=== PATIENT | female | born 1950 | race Caucasian/White ===

== ENCOUNTER 2017-08-19 10:42 | Observation (INO) | payer OTHER ==
[~2017-08-19] VITALS: Ht 162.6 cm; Wt 62.1 kg
[2017-08-19 10:59] VITALS: BP 101/63; PULSE 94; RESP 18; TEMP 97.6; O2SAT 97
[2017-08-19 11:53] LABS: AUTOMATED NEUTROPHIL # 11.9 TH/MM3 (1.8-7.7); BASOPHIL # 0.5 TH/MM3 (0-0.2); BASOPHIL % 3.3 % (0.0-2.0); EOSINOPHIL % 0.1 % (0.0-4.0); HEMATOCRIT 38.5 % (35.0-46.0); HEMOGLOBIN 12.7 GM/DL (11.6-15.3); LYMPH % 8.7 % (9.0-44.0); LYMPHOCYTE # 1.3 TH/MM3 (1.0-4.8); MEAN CELL VOLUME 84.7 FL (80.0-100.0); MEAN CORPUSCULAR HEMOGLOBIN 27.9 PG (27.0-34.0); MEAN PLATELET VOLUME 7.4 FL (7.0-11.0); MONO % 7.5 % (0.0-8.0); MONOCYTE # 1.1 TH/MM3 (0-0.9); NEUT % 80.4 % (16.0-70.0); PLATELET COUNT 526 TH/MM3 (150-450); RED BLOOD COUNT 4.55 MIL/MM3 (4.00-5.30); RED CELL DISTRIBUTION WIDTH 11.6 % (11.6-17.2); WHITE BLOOD COUNT 14.8 TH/MM3 (4.0-11.0)
[2017-08-19] MEDS ORDERED: LISI-515 PO (11:53)
[2017-08-19] MEDS ORDERED: CONJTAB PO (11:53)
[2017-08-19] MEDS ORDERED: NORV2.5T PO (11:53)
[2017-08-19] MEDS ORDERED: AMLO10 PO (11:53)
[2017-08-19 11:55] LABS: BLOOD, URINE NEG (NEG); GLUCOSE,URINE NEG (NEG); KETONE, URINE NEG (NEG); NITRITE,URINE NEG (NEG); PH, URINE 7.5 (5.0-8.5); URINE LEUKOCYTE ESTERASE NEG (NEG)
[2017-08-19 11:58] LABS: BILIRUBIN, URINE NEG (NEG); URINE COLOR AMBER (YELLW/STRAW)
[2017-08-19 12:00] LABS: AMORPHOUS SEDIMENT, URINE FEW; WBC, URINE 0-2 /hpf (0-5)
--- NOTE | 2017-08-19 12:03 | PD ---
HPI Chief Complaint: GI Complaint Time Seen by Provider: 11:30 Travel History International Travel<30 days: No Contact w/Intl Traveler<30days: No Traveled to known affect area: No History of Present Illness HPI 66 y/o female presents with 3 week history of abdominal pain and nonbloody diarrhea. She went for colonoscopy today with Dr. Maier but they were unable to perform given she was not able to prep properly. given she was having significant pain she was sent here for further workup. Any other concurrent complaints. Quality is crampy. Severity is moderate. She denies specific modifying factors. She states she currently is on a 7 day regimen of Cipro and Flagyl which usually helps but this has not yet. PFSH Past Medical History Hypertension: Yes ?: Not Past Surgical History Section: Yes (X 2) Gynecologic Surgery: Yes ( ABOVE) Hysterectomy: Yes Social History Alcohol Use: Yes (OCCASIONAL WINE) Tobacco Use: No Substance Use: No Allergies-Medications (Allergen,Severity, Reaction): Coded Allergies: codeine (Verified Adverse Reaction, Intermediate, GI UPSET, 08/19/17) Reported Meds & Prescriptions Reported Meds & Active Scripts Active Reported Premphase Blister Pack (Estrogens Conj/Medroxyprogest Acet) 0.625-5 Mg Tab 1 Tab PO 2XWEEK Take 1 maroon tablet daily for 14 days followed by 1 light-blue tablet for 14 days. Lisinopril 20 Mg Tab 20 Mg PO DAILY Norvasc (Amlodipine Besylate) 10 Mg Tab 10 Mg PO DAILY Norvasc (Amlodipine Besylate) 2.5 Mg Tab 2.5 Mg PO DAILY Review of Systems Except as stated in HPI: all other systems reviewed are Neg Physical Exam Narrative GENERAL: 66-year-old female in no apparent distress SKIN: Focused skin assessment warm/dry. HEAD: Atraumatic. Normocephalic. EYES: Pupils equal and round. No scleral icterus. No injection or drainage. ENT: No nasal bleeding or discharge. Mucous membranes pink and moist. NECK: Trachea midline. No JVD. CARDIOVASCULAR: Regular rate and rhythm. RESPIRATORY: No accessory muscle use. GASTROINTESTINAL: Abdomen soft, non-tender, nondistended. MUSCULOSKELETAL: No obvious deformities. No clubbing. No cyanosis. NEUROLOGICAL: Awake and alert. Motor grossly within normal limits. Normal speech. PSYCHIATRIC: Appropriate mood and affect; insight and judgment normal. Data Data Last Documented VS Vital Signs Date Time Temp Pulse Resp B/P (MAP) Pulse Ox O2 Delivery O2 Flow Rate FiO2 08/19/17 10:59 97.6 94 18 101/63 (76) 97 Orders Orders Complete Blood Count With Diff (08/19/17 11:30) Comprehensive Metabolic Panel (08/19/17 11:30) Urinalysis - C+S If Indicated (08/19/17 11:30) Lipase (08/19/17 11:30) Ct Abd/Pel W Iv Contrast(Rout) (08/19/17 ) Iv Access Insert/Monitor (08/19/17 11:30) Iohexol 350 Inj (Omnipaque 350 Inj) (08/19/17 12:42) Admit Order (Ed Use Only) (08/19/17 13:38) Ciprofloxacin 400 Mg Premix (Cipro 400 M (08/19/17 13:45) Metronidazole 500 Mg Inj (Flagyl 500 Mg (08/19/17 13:45) Gastrografin Enema (08/19/17 ) Labs Laboratory Tests Test 08/19/17 11:30 08/19/17 11:45 Urine Collection Type CLEAN CATCH Urine Color NABIL Urine Turbidity SLIGHT Urine pH 7.5 Urine Specific [place] 1.009 Urine Protein NEG mg/dL Urine Glucose (UA) NEG mg/dL Urine Ketones NEG mg/dL Urine Occult Blood NEG Urine Nitrite NEG Urine Bilirubin NEG Urine Leukocyte Esterase NEG Urine WBC 0-2 /hpf Urine Squamous Epithelial Cells 6-8 /hpf Urine Amorphous Sediment FEW Urine Hyaline Casts 3-5 /lpf Microscopic Urinalysis Comment CULT NOT INDICATED Urine Collection Time 1130 White Blood Count 14.8 TH/MM3 Red Blood Count 4.55 MIL/MM3 Hemoglobin 12.7 GM/DL Hematocrit 38.5 % Mean Corpuscular Volume 84.7 FL Mean Corpuscular Hemoglobin 27.9 PG Mean Corpuscular Hemoglobin Concent 33.0 % Red Cell Distribution Width 11.6 % Platelet Count 526 TH/MM3 Mean Platelet Volume 7.4 FL Neutrophils (%) (Auto) 80.4 % Lymphocytes (%) (Auto) 8.7 % Monocytes (%) (Auto) 7.5 % Eosinophils (%) (Auto) 0.1 % Basophils (%) (Auto) 3.3 % Neutrophils # (Auto) 11.9 TH/MM3 Lymphocytes # (Auto) 1.3 TH/MM3 Monocytes # (Auto) 1.1 TH/MM3 Eosinophils # (Auto) 0.0 TH/MM3 Basophils # (Auto) 0.5 TH/MM3 CBC Comment DIFF FINAL Differential Comment Blood Urea Nitrogen 16 MG/DL Creatinine 1.10 MG/DL Random Glucose 129 MG/DL Total Protein 7.7 GM/DL Albumin 3.2 GM/DL Calcium Level 9.3 MG/DL Alkaline Phosphatase 93 U/L Aspartate Amino Transf (AST/SGOT) 10 U/L Alanine Aminotransferase (ALT/SGPT) 15 U/L Total Bilirubin 0.4 MG/DL Sodium Level 135 MEQ/L Potassium Level 3.5 MEQ/L Chloride Level 96 MEQ/L Carbon Dioxide Level 30.4 MEQ/L Anion Gap 9 MEQ/L Estimat Glomerular Filtration Rate 50 ML/MIN Lipase 172 U/L MDM Medical Decision Making Medical Screen Exam Complete: Yes Emergency Medical Condition: Yes Medical Record Reviewed: Yes (pmh confirmed) Interpretation(s) CBC & BMP Diagram 08/19/17 11:45 Total Protein 7.7, Albumin 3.2 L, Calcium Level 9.3, Alkaline Phosphatase 93, Aspartate Amino Transf (AST/SGOT) 10 L, Alanine Aminotransferase (ALT/SGPT) 15, Total Bilirubin 0.4 Last 24 hours Impressions Abdomen/Pelvis CT 08/19/17 0000 Signed Impressions: Service Date/Time: Saturday, August 19, 2017 12:31 - CONCLUSION: 1. Retained stool in the sigmoid colon which has the appearance of a fecal impaction. 2. Fluid collection and mild wall thickening is identified in the distal descending colon and proximal sigmoid colon. 3. No evidence of free air, significant pericolonic inflammation or abnormal extraintestinal fluid collections. 4. Simple hepatic cysts. Naeem Dorado MD Differential Diagnosis Diverticulitis, colitis, IBS Narrative Course We will check blood work, urinalysis, CT scan abdominal pelvis and reevaluate ED workup with fecal impaction with concurrent mild inflammation and fluid collection of descending colon. Will discuss with her GI specialist Patient updated and agrees to observation Physician Communication Physician Communication dr maier called and gave basic report before patient arrived and requested basic blood work and CT of abdomen dr maier requests gastrograffin enema and iv antibiotics with observation with [facility] team dr kc states to place in observation under dr salvador Diagnosis Primary Impression: Fecal impaction Additional Impressions: Abdominal pain Qualified Codes: R10.9 - Unspecified abdominal pain Colon wall thickening Admitting Information Admitting Physician Requests: Observation Brandi Martinez MD Aug 19, 2017 12:03
[2017-08-19 12:05] LABS: CHLORIDE 96 MEQ/L (98-107); SODIUM (NA) 135 MEQ/L (136-145)
[2017-08-19 12:08] LABS: ALBUMIN 3.2 GM/DL (3.4-5.0); BICARBONATE 30.4 MEQ/L (21.0-32.0); CALCIUM 9.3 MG/DL (8.5-10.1)
[2017-08-19 12:09] LABS: BLOOD UREA NITROGEN 16 MG/DL (7-18); GLUCOSE,RANDOM 129 MG/DL (74-106)
[2017-08-19 12:11] LABS: ALT (GPT) 15 U/L (10-53); AST (GOT) 10 U/L (15-37); GLOMERULAR FILTRATION RATE 50 ML/MIN (>89)
[2017-08-19 12:13] LABS: TOTAL BILIRUBIN ADULT 0.4 MG/DL (0.2-1.0); TOTAL PROTEIN 7.7 GM/DL (6.4-8.2)
[2017-08-19 12:14] LABS: ALKALINE PHOSPHATASE 93 U/L (45-117)
[2017-08-19] MEDS ORDERED: IOHEXOL 350 MG/ML 10 ML VIAL (for RAD DIAG) IVCONTRAST ONE (12:42)
--- NOTE | 2017-08-19 13:07 | RADRPT ---
EXAM DATE/TIME: 08/19/2017 12:31 [place] COMPARISON: No previous studies available for comparison. INDICATIONS : Colonoscopy this morning. Now has abdominal pain and cramping. IV CONTRAST: 75 cc Omnipaque 350 (iohexol) IV ORAL CONTRAST: No oral contrast ingested. RADIATION DOSE: 7.85 CTDIvol (mGy) MEDICAL HISTORY : Hypertension. SURGICAL HISTORY : Hysterectomy. section. ENCOUNTER: Initial ACUITY: 1 day PAIN SCALE: 5/10 LOCATION: pelvis TECHNIQUE: Volumetric scanning of the abdomen and pelvis was performed. Using automated exposure control and ad justment of the mA and/or kV according to patient size, radiation dose was kept as low as reasonably achievable to obtain optimal diagnostic quality images. DICOM format image data is available electro nically for review and comparison. FINDINGS: LOWER LUNGS: The visualized lower lungs are clear. LIVER: Homogeneous density without suspicious lesion. 3 discrete simple cysts are identified. Largest measur es 1.6 cm. There is no dilation of the biliary tree. SPLEEN: Normal size without lesion. PANCREAS: Within normal limits. KIDNEYS: Normal in size and shape. 2 tiny nonobstructing calculi are identified in the right kidney. There is no mass space or hydronephrosis. ADRENAL GLANDS: Within normal limits. VASCULAR: There is no aortic aneurysm. BOWEL/MESENTERY: Retained stool which has the appearance of the thecal impaction is identified in the mid sigmoid colo n. There is fluid and mild wall thickening identified proximal to this area. There is no significant pericolonic inflammation or abnormal fluid collections. Non-dilated loops of fluid-filled small bowel are noted. ABDOMINAL WALL: Within normal limits. RETROPERITONEUM: There is no lymphadenopathy. BLADDER: No wall thickening or mass. REPRODUCTIVE: Within normal limits. INGUINAL: There is no lymphadenopathy or hernia. MUSCULOSKELETAL: Within normal limits for patient age. CONCLUSION: 1. Retained stool in the sigmoid colon which has the appearance of a fecal impaction. 2. Fluid collection and mild wall thickening is identified in the distal descending colon and proxima l sigmoid colon. 3. No evidence of free air, significant pericolonic inflammation or abnormal extraintestinal fluid co llections. 4. Simple hepatic cysts. Naeem Dorado MD on August 19, 2017 at 12:56 Board Certified Radiologist. This report was verified electronically.
[2017-08-19 13:30] VITALS: BP 110/70; PULSE 86; RESP 20; O2SAT 98
[2017-08-19] MEDS ORDERED: DIATRIZOATE MEGLUM/DIATRIZOATE SOD 120 ML BTL (for RAD DIAG) RECTAL ONE (13:41)
[2017-08-19] MEDS ORDERED: CIPROFLOXACIN 400 MG PREMIX 200 ML IV ONE (13:45)
[2017-08-19] MEDS ORDERED: metroNIDAZOLE 500 MG INJ 100 ML IV ONE (13:45)
[2017-08-19] MEDS ORDERED: NALOXONE HCL 0.4 MG/ML AMP IV PUSH PRN (14:00)
[2017-08-19] MEDS ORDERED: BISACODYL 10 MG SUPP RECTAL PRN (14:00)
[2017-08-19] MEDS ORDERED: SENNOSIDES 8.6 MG TAB PO PRN (14:00)
[2017-08-19] MEDS ORDERED: MAGNESIUM HYDROXIDE SUSP 30 ML CUP PO PRN (14:00)
[2017-08-19] MEDS ORDERED: SODIUM CHLORIDE 0.9% FLUSH 10 ML FLUSH IV FLUSH PRN (14:00)
[2017-08-19] MEDS ORDERED: LACTULOSE SYRUP 20 GM/30 ML CUP PO PRN (14:00)
[2017-08-19] MEDS ORDERED: ONDANSETRON HCL 4 MG/2 ML VIAL IVP PRN (14:00)
[2017-08-19] MEDS: SODIUM CHLOR 0.45% 1000 ML INJ 1,000 ML IV SCH (15:23)
[2017-08-19 16:00] VITALS: BP 121/80; PULSE 93; RESP 18; TEMP 97.4; TEMP 97.5; O2SAT 97
--- NOTE | 2017-08-19 16:10 | HHI.HP ---
HPI Service [facility] Hospitalists Primary Care Physician Jonelle Caballero M.D. Admission Diagnosis fecal impaction, abdominal pain Chief Complaint: sent by GI for admission failed out patient treatment Travel History International Travel<30 Days: No Contact w/Intl Traveler <30 Da: No Traveled to Known Affected Are: No History of Present Illness 66 y/o female presents with 3 week history of abdominal pain and nonbloody diarrhea. She went for colonoscopy today with Dr. Maier but they were unable to perform given she was not able to prep properly. given she was having significant pain she was sent here for further workup. Any other concurrent complaints. Quality is crampy. Severity is moderate. She denies specific modifying factors. She states she currently is on a 7 day regimen of Cipro and Flagyl which usually helps but this has not yet. Also has been on levsin or librax in past also bentyl with mixed results . In er had elevation WBC count and CT showed fecal impaction with fluid collection and mild wall thickening distal desending colon that GI believes is diverticular and was gastrograffin enema and IV antibiotics. Review of Systems Gastrointestinal: COMPLAINS OF: Abdominal pain, Nausea Past Family Social History Past Medical History htn,diverticular disease Past Surgical History hysterectomy Reported Medications lisinopril 20 norvasc 10 hormone Allergies: Coded Allergies: codeine (Verified Adverse Reaction, Intermediate, GI UPSET, 08/19/17) Social History NS,ND Physical Exam Vital Signs Vital Signs Date Time Temp Pulse Resp B/P (MAP) Pulse Ox O2 Delivery O2 Flow Rate FiO2 08/19/17 13:30 86 20 110/70 (83) 98 Room Air 08/19/17 10:59 97.6 94 18 101/63 (76) 97 Physical Exam GENERAL: This is a well-nourished, well-developed patient, in no apparent distress. SKIN: No rashes, ecchymoses or lesions. Cool and dry. HEAD: Atraumatic. Normocephalic. No temporal or scalp tenderness. EYES: Pupils equal round and reactive. Extraocular motions intact. No scleral icterus. No injection or drainage. ENT: Nose without bleeding, purulent drainage or septal hematoma. Throat without erythema, tonsillar hypertrophy or exudate. Uvula midline. Airway patent. NECK: Trachea midline. No JVD or lymphadenopathy. Supple, nontender, no meningeal signs. CARDIOVASCULAR: Regular rate and rhythm without murmurs, gallops, or rubs. RESPIRATORY: Clear to auscultation. Breath sounds equal bilaterally. No wheezes , rales, or rhonchi. GASTROINTESTINAL: Abdomen soft, mild-tender, nondistended. No hepato- splenomegaly, or palpable masses. No guarding. MUSCULOSKELETAL: Extremities without clubbing, cyanosis, or edema. No joint tenderness, effusion, or edema noted. No calf tenderness. Negative Homans sign bilaterally. NEUROLOGICAL: Awake and alert. Cranial nerves II through XII intact. Motor and sensory grossly within normal limits. Five out of 5 muscle strength in all muscle groups. Normal speech. Laboratory Laboratory Tests Test 08/19/17 11:30 08/19/17 11:45 Urine Collection Type CLEAN CATCH Urine Color NABIL Urine Turbidity SLIGHT Urine pH 7.5 Urine Specific [place] 1.009 Urine Protein NEG Urine Glucose (UA) NEG Urine Ketones NEG Urine Occult Blood NEG Urine Nitrite NEG Urine Bilirubin NEG Urine Leukocyte Esterase NEG Urine WBC 0-2 Urine Squamous Epithelial Cells 6-8 Urine Amorphous Sediment FEW Urine Hyaline Casts 3-5 Microscopic Urinalysis Comment CULT NOT INDICATED Urine Collection Time 1130 White Blood Count 14.8 Red Blood Count 4.55 Hemoglobin 12.7 Hematocrit 38.5 Mean Corpuscular Volume 84.7 Mean Corpuscular Hemoglobin 27.9 Mean Corpuscular Hemoglobin Concent 33.0 Red Cell Distribution Width 11.6 Platelet Count 526 Mean Platelet Volume 7.4 Neutrophils (%) (Auto) 80.4 Lymphocytes (%) (Auto) 8.7 Monocytes (%) (Auto) 7.5 Eosinophils (%) (Auto) 0.1 Basophils (%) (Auto) 3.3 Neutrophils # (Auto) 11.9 Lymphocytes # (Auto) 1.3 Monocytes # (Auto) 1.1 Eosinophils # (Auto) 0.0 Basophils # (Auto) 0.5 CBC Comment DIFF FINAL Differential Comment Blood Urea Nitrogen 16 Creatinine 1.10 Random Glucose 129 Total Protein 7.7 Albumin 3.2 Calcium Level 9.3 Alkaline Phosphatase 93 Aspartate Amino Transf (AST/SGOT) 10 Alanine Aminotransferase (ALT/SGPT) 15 Total Bilirubin 0.4 Sodium Level 135 Potassium Level 3.5 Chloride Level 96 Carbon Dioxide Level 30.4 Anion Gap 9 Estimat Glomerular Filtration Rate 50 Lipase 172 Result Diagram: 08/19/17 1145 08/19/17 1145 Imaging Last 24 hours Impressions Abdomen/Pelvis CT 08/19/17 0000 Signed Impressions: Service Date/Time: Saturday, August 19, 2017 12:31 - CONCLUSION: 1. Retained stool in the sigmoid colon which has the appearance of a fecal impaction. 2. Fluid collection and mild wall thickening is identified in the distal descending colon and proximal sigmoid colon. 3. No evidence of free air, significant pericolonic inflammation or abnormal extraintestinal fluid collections. 4. Simple hepatic cysts. MD Lizeth Vang VTE Risk Assessment Caprinjuarez VTE Risk Assessment: No/Low Risk (score <= 1) Caprini Risk Assessment Model Point Value = 1 Point Value = 2 Point Value = 3 Point Value = 5 Age 41-60 Minor surgery BMI > 25 kg/m2 Swollen legs Varicose veins or History of unexplained or recurrent spontaneous Oral contraceptives or hormone replacement Sepsis (< 1 month) Serious lung disease, including pneumonia (< 1 month) Abnormal pulmonary function Acute myocardial infarction Congestive heart failure (< 1 month) History of inflammatory bowel disease Medical patient at bed rest Age 61-74 Arthroscopic surgery Major open surgery (> 45 min) Laparoscopic surgery (> 45 min) Malignancy Confined to bed (> 72 hours) Immobilizing plaster cast Central venous access Age >= 75 History of VTE Family history of VTE Factor V Leiden Prothrombin [id number] Lupus anticoagulant Anticardiolipin antibodies Elevated serum homocysteine Heparin-induced thrombocytopenia Other congenital or acquired thrombophilia Stroke (< 1 month) Elective arthroplasty Hip, pelvis, or leg fracture Acute spinal cord injury (< 1 month) Prophylaxis Regimen Total Risk Factor Score Risk Level Prophylaxis Regimen 0-1 Low Early ambulation 2 Moderate Order ONE of the following: *Sequential Compression Device (SCD) *Heparin 5000 units SQ BID 3-4 Higher Order ONE of the following medications: *Heparin 5000 units SQ TID *Enoxaparin/Lovenox 40 mg SQ daily (WT < 150 kg, CrCl > 30 mL/min) *Enoxaparin/Lovenox 30 mg SQ daily (WT < 150 kg, CrCl > 10-29 mL/min) *Enoxaparin/Lovenox 30 mg SQ BID (WT < 150 kg, CrCl > 30 mL/min) AND/OR *Sequential Compression Device (SCD) 5 or more Highest Order ONE of the following medications: *Heparin 5000 units SQ TID (Preferred with Epidurals) *Enoxaparin/Lovenox 40 mg SQ daily (WT < 150 kg, CrCl > 30 mL/min) *Enoxaparin/Lovenox 30 mg SQ daily (WT < 150 kg, CrCl > 10-29 mL/min) *Enoxaparin/Lovenox 30 mg SQ BID (WT < 150 kg, CrCl > 30 mL/min) AND *Sequential Compression Device (SCD) Assessment and Plan Problem List: (1) Abdominal pain ICD Codes: R10.9 - Unspecified abdominal pain Status: Acute Plan: iv fluid NPO GI consult sent by their office empiric flagyl and cipro IV (2) Colon wall thickening ICD Codes: K63.9 - Disease of intestine, unspecified Status: Acute Plan: possibly related to diverticulitis further plan as per GI (3) Fecal impaction ICD Codes: K56.41 - Fecal impaction Status: Acute Plan: as per GI gastrograffin enema Assessment and Plan as above will keep NPO for now Code Status full Discussed Condition With patient Problem Qualifiers (1) Abdominal pain: Qualified Codes: R10.9 - Unspecified abdominal pain Jose Armando Garza MD Aug 19, 2017 16:10
[2017-08-19] MEDS ORDERED: MAGNESIUM CITRATE SOLN 300 ML BTL PO ONE (19:00)
[2017-08-19 20:00] VITALS: BP 116/76; PULSE 109; RESP 18; TEMP 97.2; O2SAT 98
[2017-08-19] MEDS: DOCUSATE SODIUM 50 MG/SENNA 8.6 MG TAB PO SCH (20:51)
[2017-08-19] MEDS: SODIUM CHLORIDE 0.9% FLUSH 10 ML FLUSH IV FLUSH SCH (20:52)
[2017-08-19] MEDS: metroNIDAZOLE 500 MG INJ 100 ML IV SCH (22:41)
[2017-08-19] MEDS: HYOSCYAMINE 0.125 MG TAB PO PRN (22:54)
[2017-08-20] VITALS: BP 130/81; PULSE 105; RESP 17; TEMP 98.7; O2SAT 94
[2017-08-20] MEDS: CIPROFLOXACIN 400 MG PREMIX 200 ML IV SCH ×2 (03:01→14:57)
[2017-08-20] MEDS: SODIUM CHLOR 0.45% 1000 ML INJ 1,000 ML IV SCH ×3 (03:05→20:50)
[2017-08-20] MEDS: metroNIDAZOLE 500 MG INJ 100 ML IV SCH ×3 (06:22→23:49)
[2017-08-20 06:39] LABS: AUTOMATED NEUTROPHIL # 11.2 TH/MM3 (1.8-7.7); BASOPHIL % 0.3 % (0.0-2.0); EOSINOPHIL % 0.3 % (0.0-4.0); HEMATOCRIT 34.9 % (35.0-46.0); HEMOGLOBIN 11.5 GM/DL (11.6-15.3); LYMPH % 7.6 % (9.0-44.0); LYMPHOCYTE # 1.1 TH/MM3 (1.0-4.8); MEAN CELL VOLUME 84.6 FL (80.0-100.0); MEAN CORPUSCULAR HEMOGLOBIN 27.9 PG (27.0-34.0); MEAN PLATELET VOLUME 7.4 FL (7.0-11.0); MONO % 11.8 % (0.0-8.0); MONOCYTE # 1.7 TH/MM3 (0-0.9); PLATELET COUNT 452 TH/MM3 (150-450); RED BLOOD COUNT 4.13 MIL/MM3 (4.00-5.30); RED CELL DISTRIBUTION WIDTH 11.6 % (11.6-17.2)
[2017-08-20 07:12] LABS: BICARBONATE 27.8 MEQ/L (21.0-32.0); CALCIUM 8.3 MG/DL (8.5-10.1); CREATININE 0.56 MG/DL (0.50-1.00)
--- NOTE | 2017-08-20 07:52 | HHI.PR ---
Subjective Remarks Still no bowel movement. Slight dicomfort across the left lower abdomen. No vomiting. Objective Vitals Vital Signs Date Time Temp Pulse Resp B/P (MAP) Pulse Ox O2 Delivery O2 Flow Rate FiO2 08/20/17 00:00 98.7 105 17 130/81 (97) 94 08/19/17 20:00 97.2 109 18 116/76 (89) 98 08/19/17 16:00 97.4 93 18 121/80 (94) 97 08/19/17 16:00 97.5 93 18 121/80 (94) 97 08/19/17 13:30 86 20 110/70 (83) 98 Room Air 08/19/17 10:59 97.6 94 18 101/63 (76) 97 Result Diagram: 08/20/17 0612 08/20/17 06 Other Results Laboratory Tests Test 08/19/17 11:30 08/19/17 11:45 08/20/17 06:12 Urine Collection Type CLEAN CATCH Urine Color NABIL Urine Turbidity SLIGHT Urine pH 7.5 Urine Specific [place] 1.009 Urine Protein NEG mg/dL Urine Glucose (UA) NEG mg/dL Urine Ketones NEG mg/dL Urine Occult Blood NEG Urine Nitrite NEG Urine Bilirubin NEG Urine Leukocyte Esterase NEG Urine WBC 0-2 /hpf Urine Squamous Epithelial Cells 6-8 /hpf Urine Amorphous Sediment FEW Urine Hyaline Casts 3-5 /lpf Microscopic Urinalysis Comment CULT NOT INDICATED Urine Collection Time 1130 White Blood Count 14.8 TH/MM3 14.0 TH/MM3 Red Blood Count 4.55 MIL/MM3 4.13 MIL/MM3 Hemoglobin 12.7 GM/DL 11.5 GM/DL Hematocrit 38.5 % 34.9 % Mean Corpuscular Volume 84.7 FL 84.6 FL Mean Corpuscular Hemoglobin 27.9 PG 27.9 PG Mean Corpuscular Hemoglobin Concent 33.0 % 33.0 % Red Cell Distribution Width 11.6 % 11.6 % Platelet Count 526 TH/MM3 452 TH/MM3 Mean Platelet Volume 7.4 FL 7.4 FL Neutrophils (%) (Auto) 80.4 % 80.0 % Lymphocytes (%) (Auto) 8.7 % 7.6 % Monocytes (%) (Auto) 7.5 % 11.8 % Eosinophils (%) (Auto) 0.1 % 0.3 % Basophils (%) (Auto) 3.3 % 0.3 % Neutrophils # (Auto) 11.9 TH/MM3 11.2 TH/MM3 Lymphocytes # (Auto) 1.3 TH/MM3 1.1 TH/MM3 Monocytes # (Auto) 1.1 TH/MM3 1.7 TH/MM3 Eosinophils # (Auto) 0.0 TH/MM3 0.0 TH/MM3 Basophils # (Auto) 0.5 TH/MM3 0.0 TH/MM3 CBC Comment DIFF FINAL DIFF FINAL Differential Comment Blood Urea Nitrogen 16 MG/DL 7 MG/DL Creatinine 1.10 MG/DL 0.56 MG/DL Random Glucose 129 MG/DL 119 MG/DL Total Protein 7.7 GM/DL Albumin 3.2 GM/DL Calcium Level 9.3 MG/DL 8.3 MG/DL Alkaline Phosphatase 93 U/L Aspartate Amino Transf (AST/SGOT) 10 U/L Alanine Aminotransferase (ALT/SGPT) 15 U/L Total Bilirubin 0.4 MG/DL Sodium Level 135 MEQ/L 137 MEQ/L Potassium Level 3.5 MEQ/L 3.4 MEQ/L Chloride Level 96 MEQ/L 102 MEQ/L Carbon Dioxide Level 30.4 MEQ/L 27.8 MEQ/L Anion Gap 9 MEQ/L 7 MEQ/L Estimat Glomerular Filtration Rate 50 ML/MIN 109 ML/MIN Lipase 172 U/L Imaging Last 24 hours Impressions Abdomen/Pelvis CT 08/19/17 0000 Signed Impressions: Service Date/Time: Saturday, August 19, 2017 12:31 - CONCLUSION: 1. Retained stool in the sigmoid colon which has the appearance of a fecal impaction. 2. Fluid collection and mild wall thickening is identified in the distal descending colon and proximal sigmoid colon. 3. No evidence of free air, significant pericolonic inflammation or abnormal extraintestinal fluid collections. 4. Simple hepatic cysts. Naeem Dorado MD Objective Remarks Exam: Pleasant white female in no distress. HEENT: Pupils equal, no scleral icterus, mouth negative Heart: RRR with no murmurs Lungs: Clear Abdomen: Soft, minimal tenderness in the left lower quadrant, no rebound or guarding Extremities: No edema Neuro: alert, oriented A/P Assessment and Plan Assessment: --Abdominal pain --Mild abdominal wall thickening in the distal descending and sigmoid colon on CT scan--? diverticulitis --Fecal impaction on CT scan --Hypertension Plan: Gastroenterology ordered a gastrografin enema which has not been done. Continue antibiotic for presumed diverticulitis. TEDs/SCD's for DVT prophylaxis. Duran Aguilar MD Aug 20, 2017 07:52
[2017-08-20 08:00] VITALS: BP 118/72; PULSE 99; RESP 18; TEMP 98.7; O2SAT 95
[2017-08-20] MEDS ORDERED: POTASSIUM CHLORIDE 20 MEQ CONTROLLED RELEASE TAB PO ONE (08:00)
[2017-08-20] MEDS: LISINOPRIL 20 MG TAB PO SCH (08:18)
[2017-08-20] MEDS: DOCUSATE SODIUM 50 MG/SENNA 8.6 MG TAB PO SCH ×2 (08:18→20:50)
[2017-08-20] MEDS: HYOSCYAMINE 0.125 MG TAB PO PRN (08:18)
[2017-08-20] MEDS: SODIUM CHLORIDE 0.9% FLUSH 10 ML FLUSH IV FLUSH SCH ×2 (08:18→20:50)
[2017-08-20 12:00] VITALS: BP 125/75; PULSE 104; RESP 18; TEMP 98.7; O2SAT 98
--- NOTE | 2017-08-20 15:35 | MB ---
cc: Nadine Maier MD DATE OF CONSULT: 08/19/2017 REFERRING PHYSICIAN: Dr. Garza HISTORY OF PRESENT ILLNESS: Ms. Guevara is a very pleasant 66-year-old lady with a history of IBS. She has severe abdominal pain, nonbloody diarrhea for the last 3 weeks. She was given antibiotics as an outpatient with no significant improvement in her symptoms. This morning, she was scheduled for a colonoscopy outpatient. She stated that while she was preparing for the colonoscopy she developed severe pain in the lower abdomen. She was unable to complete the prep. She drank only 1 bottle. She did have some nausea, but no vomiting. The pain was so intense that she wanted to go to emergency room overnight. She had a fainting episode. Her took her to emergency room, but she got better and so they decided not to wait and proceeded with colonoscopy in the morning. She had an attempted colonoscopy. I passed the scope up to her sigmoid colon. Here, a large amount of solid stool was noted and severe diverticulosis. I was unable to complete the colonoscopy secondary to the above. I went and changed the scope to an ultra slim scope, but in spite of that I was unable to pass it. Due to above symptoms and the findings, patient was referred to emergency room for further evaluation and treatment. In the emergency room, she had a CT abdomen and pelvis, which showed again impacted stool in the sigmoid colon, and slight elevated liver enzymes. She was admitted for observation and disimpaction. PAST MEDICAL HISTORY: Hypertension, diverticular disease, IBS. PAST SURGICAL HISTORY: Hysterectomy. MEDICATIONS: Currently, she is on Norvasc, lisinopril, Cipro, metronidazole, Danay-Colace, Levsin, Zofran, milk of magnesia, Senokot, lactulose, bisacodyl. ALLERGIES: CODEINE. REVIEW OF SYSTEMS: CONSTITUTIONAL: She denies any fever, chills, weight loss or weight gain. ENT: No alteration in baseline hearing or visual acuity. PULMONARY: Denies any chest pain, shortness of breath. GASTROINTESTINAL: As above. GENITOURINARY: Denies history of hematuria. HEMATOLOGIC: No history of anemia or bleeding disorders. SKIN: No alteration in baseline skin lesion. NEUROLOGIC: No history of TIA or CVA kind of symptoms. PHYSICAL EXAMINATION: GENERAL: She is sitting comfortably in bed in no acute distress. VITAL SIGNS: Temperature 97.6, pulse 94, respiration 18, blood pressure 101/63, pulse of 97. NECK: No JVD. No lymphadenopathy. CHEST: Clear to auscultation to palpation. CARDIOVASCULAR: S1, S2, no murmur. ABDOMEN: Soft, tender in the lower abdomen. CENTRAL NERVOUS SYSTEM: Awake, alert, oriented x3. No focal signs identified. LABORATORY DATA: White count 14.8, hemoglobin 12.7, platelets 526. Chemistry was suggestive of BUN 16, creatinine 1.10, glucose 129, AST 10, albumin 3.2. IMAGING: Her CT abdomen and pelvis showed retained stool in the sigmoid colon, which was the appearance of a fecal impaction. Fluid collection and mid wall thickening is identified in the distal descending colon and proximal sigmoid colon. No evidence of free air or significant pericolic inflammation or abnormal extraintestinal fluid collection. Simple hepatic cyst. IMPRESSION: Ms. Guevara is a 66-year-old lady who has had severe abdominal pain for the last 3 weeks, diarrhea. Colonoscopy today incomplete secondary to significant fecal impaction in the sigmoid colon confirmed by CT abdomen and pelvis, etiology of this unclear, suspect diverticulitis with subsequent fecal impaction. Possible overflow diarrhea is secondary to fecal impaction. RECOMMENDATION: Full liquid diet, IV antibiotics, Gastrografin enema in the morning, additional bowel prep. Further recommendation will depend on the patient's clinical status and the above results. I would like to thank Dr. Garza for referring her to our office for consultation. Findings were discussed with the patient and her . Nadine Maier MD BSB/cc , 06:58 PM , 08:39 PM [facility]
[2017-08-20 16:00] VITALS: BP 103/61; PULSE 90; RESP 18; TEMP 98.3
--- NOTE | 2017-08-20 16:01 | RADRPT ---
EXAM DATE/TIME: 08/20/2017 11:36 [facility] COMPARISON: No previous studies available for comparison. INDICATIONS : Incomplete colonoscopy due to fecal impaction. FLUORO TIME: 1.3 minutes IMAGE COUNT: 18 CONTRAST: 1. [facility] MEDICAL HISTORY : Hypertension. Irritable bowel syndrome. Diverticulitis. SURGICAL HISTORY : section. Hysterectomy. ENCOUNTER: Subsequent ACUITY: 2 days PAIN SCORE: 9/10 LOCATION: abdomen. FINDINGS: Preliminary film demonstrate prominent stool in the pelvis.. Under fluoroscopic guidance, a Gastrografin enema was performed . Initially, the contrast stopped at the distal sigmoid colon. The Gastrografin stopped there for several minutes. Eventually, it did pass through that region. After passing through that region, a Gastrografin freely flowed to the cecum. T here was stool seen throughout the colon. An obstructing lesion was not clearly seen although the sig moid colon with the stool stool is difficult to fully evaluate. Post evacuation radiographs are unremarkable. CONCLUSION: Initial obstruction at the distal sigmoid colon that eventually did allow Gastrografin to flow throug h this region. This is thought to likely be secondary to a large amount stool in this region. An unde rlying lesion cannot be excluded. It is thought that this region of the colon could be directly inspe cted at some point. Nestor Muñoz MD on August 20, 2017 at 15:57 Board Certified Radiologist. This report was verified electronically.
--- NOTE | 2017-08-20 16:16 | HHI.GIFU ---
GI Follow-up Note Consult Follow-up Subjective: Patient laying in bed comfortably, feeling better.Had Gastrografin enema, discussed with , most likely fecal impaction in sigmoid.She had large amount of stool afterwards,Had some vomiting during test .Pain better , would like to wait until tomorrow before going home .discussed with patient and Objective: PHYSICAL EXAMINATION: Vitals signs stable No fever HEENT: Pupils round and reactive to light; normocephalic; atraumatic; no jaundice. Throat is clear. NECK: Neck is supple, no JVD, no lymphadenopathy. CHEST: Chest is clear to auscultation and percussion. CARDIAC: Regular rate and rhythm with no murmur gallop or rubs. ABDOMEN: Soft, nondistended, minimal tenderness llq; no hepatosplenomegaly; bowel sounds are present in all four quadrants. EXTREMITIES: No clubbing, cyanosis, or edema. SKIN: Normal; no rash; no jaundice. CURATOR OF EDUCATION: No focal deficits; alert and oriented times three. Available Data (labs, X- Rays, Procedues) : Laboratory Tests Test 08/19/17 11:30 08/19/17 11:45 08/20/17 06:12 Urine Collection Type CLEAN CATCH Urine Color NABIL Urine Turbidity SLIGHT Urine pH 7.5 Urine Specific [place] 1.009 Urine Protein NEG mg/dL Urine Glucose (UA) NEG mg/dL Urine Ketones NEG mg/dL Urine Occult Blood NEG Urine Nitrite NEG Urine Bilirubin NEG Urine Leukocyte Esterase NEG Urine WBC 0-2 /hpf Urine Squamous Epithelial Cells 6-8 /hpf Urine Amorphous Sediment FEW Urine Hyaline Casts 3-5 /lpf Microscopic Urinalysis Comment CULT NOT INDICATED Urine Collection Time 1130 White Blood Count 14.8 TH/MM3 14.0 TH/MM3 Red Blood Count 4.55 MIL/MM3 4.13 MIL/MM3 Hemoglobin 12.7 GM/DL 11.5 GM/DL Hematocrit 38.5 % 34.9 % Mean Corpuscular Volume 84.7 FL 84.6 FL Mean Corpuscular Hemoglobin 27.9 PG 27.9 PG Mean Corpuscular Hemoglobin Concent 33.0 % 33.0 % Red Cell Distribution Width 11.6 % 11.6 % Platelet Count 526 TH/MM3 452 TH/MM3 Mean Platelet Volume 7.4 FL 7.4 FL Neutrophils (%) (Auto) 80.4 % 80.0 % Lymphocytes (%) (Auto) 8.7 % 7.6 % Monocytes (%) (Auto) 7.5 % 11.8 % Eosinophils (%) (Auto) 0.1 % 0.3 % Basophils (%) (Auto) 3.3 % 0.3 % Neutrophils # (Auto) 11.9 TH/MM3 11.2 TH/MM3 Lymphocytes # (Auto) 1.3 TH/MM3 1.1 TH/MM3 Monocytes # (Auto) 1.1 TH/MM3 1.7 TH/MM3 Eosinophils # (Auto) 0.0 TH/MM3 0.0 TH/MM3 Basophils # (Auto) 0.5 TH/MM3 0.0 TH/MM3 CBC Comment DIFF FINAL DIFF FINAL Differential Comment Blood Urea Nitrogen 16 MG/DL 7 MG/DL Creatinine 1.10 MG/DL 0.56 MG/DL Random Glucose 129 MG/DL 119 MG/DL Total Protein 7.7 GM/DL Albumin 3.2 GM/DL Calcium Level 9.3 MG/DL 8.3 MG/DL Alkaline Phosphatase 93 U/L Aspartate Amino Transf (AST/SGOT) 10 U/L Alanine Aminotransferase (ALT/SGPT) 15 U/L Total Bilirubin 0.4 MG/DL Sodium Level 135 MEQ/L 137 MEQ/L Potassium Level 3.5 MEQ/L 3.4 MEQ/L Chloride Level 96 MEQ/L 102 MEQ/L Carbon Dioxide Level 30.4 MEQ/L 27.8 MEQ/L Anion Gap 9 MEQ/L 7 MEQ/L Estimat Glomerular Filtration Rate 50 ML/MIN 109 ML/MIN Lipase 172 U/L ASSESSMENT/PLAN: abdominal pain, diarrhea -possible overflow diarrhea fecal impaction in sigmoid, most likely secondary acute diverticulitis - resolved after Gastrografin enema history of tortuous sigmoid colon with severe diverticulosis incomplete colonoscopy op secondary to fecal impaction in sigmoid colon Recommendations: advance diet continue iv antibiotics for another 7 days abdominal x ray colonoscopy in 6-8 weeks op if no improvement consider referral colorectal surgery It was a pleasure seeing Mariya Guevara. Thank you for this consult. Entered by: Nadine Koroma MD Aug 20, 2017 16:16
[2017-08-20 20:00] VITALS: BP 108/67; PULSE 94; RESP 16; TEMP 96; O2SAT 95
[2017-08-21] MEDS: CIPROFLOXACIN 400 MG PREMIX 200 ML IV SCH (02:08)
[2017-08-21] MEDS: metroNIDAZOLE 500 MG INJ 100 ML IV SCH (07:29)
[2017-08-21 07:44] LABS: AUTOMATED NEUTROPHIL # 6.2 TH/MM3 (1.8-7.7); BASOPHIL % 0.3 % (0.0-2.0); EOSINOPHIL # 0.1 TH/MM3 (0-0.4); EOSINOPHIL % 1.6 % (0.0-4.0); HEMATOCRIT 34.3 % (35.0-46.0); HEMOGLOBIN 11.4 GM/DL (11.6-15.3); LYMPH % 15.7 % (9.0-44.0); LYMPHOCYTE # 1.3 TH/MM3 (1.0-4.8); MEAN CELL VOLUME 84.9 FL (80.0-100.0); MEAN CORPUSCULAR HEMOGLOBIN 28.2 PG (27.0-34.0); MEAN CORPUSCULAR HGB CONC 33.2 % (32.0-36.0); MEAN PLATELET VOLUME 7.1 FL (7.0-11.0); MONOCYTE # 0.8 TH/MM3 (0-0.9); NEUT % 72.4 % (16.0-70.0); PLATELET COUNT 459 TH/MM3 (150-450); RED BLOOD COUNT 4.05 MIL/MM3 (4.00-5.30); RED CELL DISTRIBUTION WIDTH 11.9 % (11.6-17.2); WHITE BLOOD COUNT 8.4 TH/MM3 (4.0-11.0)
[2017-08-21 07:51] LABS: BICARBONATE 26.2 MEQ/L (21.0-32.0); CALCIUM 8.6 MG/DL (8.5-10.1)
[2017-08-21 07:55] LABS: CREATININE 0.56 MG/DL (0.50-1.00)
[2017-08-21 08:00] VITALS: BP 118/70; PULSE 89; RESP 18; TEMP 97.2; O2SAT 96
--- NOTE | 2017-08-21 08:05 | HHI.GIFU ---
GI Follow-up Note Consult Follow-up Subjective: Patient laying in bed comfortably, feeling better . Had multiple bowel movements .WBC improved.Awaiting repeat abd x-ray Objective: PHYSICAL EXAMINATION: Vitals signs stable No fever HEENT: Pupils round and reactive to light; normocephalic; atraumatic; no jaundice. Throat is clear. NECK: Neck is supple, no JVD, no lymphadenopathy. CHEST: Chest is clear to auscultation and percussion. CARDIAC: Regular rate and rhythm with no murmur gallop or rubs. ABDOMEN: Soft, nondistended, nontender; no hepatosplenomegaly; bowel sounds are present in all four quadrants. EXTREMITIES: No clubbing, cyanosis, or edema. SKIN: Normal; no rash; no jaundice. AGED OR DISABLED CARER: No focal deficits; alert and oriented times three. Available Data (labs, X- Rays, Procedues) : Laboratory Tests Test 08/19/17 11:30 08/19/17 11:45 08/20/17 06:12 08/21/17 07:30 Urine Collection Type CLEAN CATCH Urine Color NABIL Urine Turbidity SLIGHT Urine pH 7.5 Urine Specific [place] 1.009 Urine Protein NEG mg/dL Urine Glucose (UA) NEG mg/dL Urine Ketones NEG mg/dL Urine Occult Blood NEG Urine Nitrite NEG Urine Bilirubin NEG Urine Leukocyte Esterase NEG Urine WBC 0-2 /hpf Urine Squamous Epithelial Cells 6-8 /hpf Urine Amorphous Sediment FEW Urine Hyaline Casts 3-5 /lpf Microscopic Urinalysis Comment CULT NOT INDICATED Urine Collection Time 1130 White Blood Count 14.8 TH/MM3 14.0 TH/MM3 8.4 TH/MM3 Red Blood Count 4.55 MIL/MM3 4.13 MIL/MM3 4.05 MIL/MM3 Hemoglobin 12.7 GM/DL 11.5 GM/DL 11.4 GM/DL Hematocrit 38.5 % 34.9 % 34.3 % Mean Corpuscular Volume 84.7 FL 84.6 FL 84.9 FL Mean Corpuscular Hemoglobin 27.9 PG 27.9 PG 28.2 PG Mean Corpuscular Hemoglobin Concent 33.0 % 33.0 % 33.2 % Red Cell Distribution Width 11.6 % 11.6 % 11.9 % Platelet Count 526 TH/MM3 452 TH/MM3 459 TH/MM3 Mean Platelet Volume 7.4 FL 7.4 FL 7.1 FL Neutrophils (%) (Auto) 80.4 % 80.0 % 72.4 % Lymphocytes (%) (Auto) 8.7 % 7.6 % 15.7 % Monocytes (%) (Auto) 7.5 % 11.8 % 10.0 % Eosinophils (%) (Auto) 0.1 % 0.3 % 1.6 % Basophils (%) (Auto) 3.3 % 0.3 % 0.3 % Neutrophils # (Auto) 11.9 TH/MM3 11.2 TH/MM3 6.2 TH/MM3 Lymphocytes # (Auto) 1.3 TH/MM3 1.1 TH/MM3 1.3 TH/MM3 Monocytes # (Auto) 1.1 TH/MM3 1.7 TH/MM3 0.8 TH/MM3 Eosinophils # (Auto) 0.0 TH/MM3 0.0 TH/MM3 0.1 TH/MM3 Basophils # (Auto) 0.5 TH/MM3 0.0 TH/MM3 0.0 TH/MM3 CBC Comment DIFF FINAL DIFF FINAL DIFF FINAL Differential Comment Blood Urea Nitrogen 16 MG/DL 7 MG/DL 6 MG/DL Creatinine 1.10 MG/DL 0.56 MG/DL 0.56 MG/DL Random Glucose 129 MG/DL 119 MG/DL 111 MG/DL Total Protein 7.7 GM/DL Albumin 3.2 GM/DL Calcium Level 9.3 MG/DL 8.3 MG/DL 8.6 MG/DL Alkaline Phosphatase 93 U/L Aspartate Amino Transf (AST/SGOT) 10 U/L Alanine Aminotransferase (ALT/SGPT) 15 U/L Total Bilirubin 0.4 MG/DL Sodium Level 135 MEQ/L 137 MEQ/L 138 MEQ/L Potassium Level 3.5 MEQ/L 3.4 MEQ/L 3.1 MEQ/L Chloride Level 96 MEQ/L 102 MEQ/L 103 MEQ/L Carbon Dioxide Level 30.4 MEQ/L 27.8 MEQ/L 26.2 MEQ/L Anion Gap 9 MEQ/L 7 MEQ/L 9 MEQ/L Estimat Glomerular Filtration Rate 50 ML/MIN 109 ML/MIN 109 ML/MIN Lipase 172 U/L ASSESSMENT/PLAN: Abdominal pain secondary fecal impaction-resolved Diverticulitis-improving Recommendations fu abdominal x-ray-if ok can dc home ok to dc home from [facility] continue antibiotics for 1 week colonoscopy in 6-8 weeks if no improvement consider consultation with surgery op It was a pleasure seeing Mariya Guevara. Thank you for this consult. Entered by: Nadine Koroma MD Aug 21, 2017 08:04
--- NOTE | 2017-08-21 08:34 | HHI.PR ---
Subjective Remarks [id number] had a large bowel movement yesterday after her gastrografin enema and she no longer has any pain. No nausea or vomiting and would like to go home today if possible. Objective Vitals Vital Signs Date Time Temp Pulse Resp B/P (MAP) Pulse Ox O2 Delivery O2 Flow Rate FiO2 08/20/17 20:00 96.0 94 16 108/67 (81) 95 08/20/17 16:00 98.3 90 18 103/61 (75) 08/20/17 12:00 98.7 104 18 125/75 (92) 98 08/21/17 08/21/17 08/22/17 15:00 23:00 07:00 Intake Total 495 ml Balance 495 ml IV Total 495 ml Result Diagram: 08/21/1772908/21/17 07 Other Results Laboratory Tests Test 08/19/17 11:30 08/19/17 11:45 08/20/17 06:12 08/21/17 07:30 Urine Collection Type CLEAN CATCH Urine Color NABIL Urine Turbidity SLIGHT Urine pH 7.5 Urine Specific [place] 1.009 Urine Protein NEG mg/dL Urine Glucose (UA) NEG mg/dL Urine Ketones NEG mg/dL Urine Occult Blood NEG Urine Nitrite NEG Urine Bilirubin NEG Urine Leukocyte Esterase NEG Urine WBC 0-2 /hpf Urine Squamous Epithelial Cells 6-8 /hpf Urine Amorphous Sediment FEW Urine Hyaline Casts 3-5 /lpf Microscopic Urinalysis Comment CULT NOT INDICATED Urine Collection Time 1130 White Blood Count 14.8 TH/MM3 14.0 TH/MM3 8.4 TH/MM3 Red Blood Count 4.55 MIL/MM3 4.13 MIL/MM3 4.05 MIL/MM3 Hemoglobin 12.7 GM/DL 11.5 GM/DL 11.4 GM/DL Hematocrit 38.5 % 34.9 % 34.3 % Mean Corpuscular Volume 84.7 FL 84.6 FL 84.9 FL Mean Corpuscular Hemoglobin 27.9 PG 27.9 PG 28.2 PG Mean Corpuscular Hemoglobin Concent 33.0 % 33.0 % 33.2 % Red Cell Distribution Width 11.6 % 11.6 % 11.9 % Platelet Count 526 TH/MM3 452 TH/MM3 459 TH/MM3 Mean Platelet Volume 7.4 FL 7.4 FL 7.1 FL Neutrophils (%) (Auto) 80.4 % 80.0 % 72.4 % Lymphocytes (%) (Auto) 8.7 % 7.6 % 15.7 % Monocytes (%) (Auto) 7.5 % 11.8 % 10.0 % Eosinophils (%) (Auto) 0.1 % 0.3 % 1.6 % Basophils (%) (Auto) 3.3 % 0.3 % 0.3 % Neutrophils # (Auto) 11.9 TH/MM3 11.2 TH/MM3 6.2 TH/MM3 Lymphocytes # (Auto) 1.3 TH/MM3 1.1 TH/MM3 1.3 TH/MM3 Monocytes # (Auto) 1.1 TH/MM3 1.7 TH/MM3 0.8 TH/MM3 Eosinophils # (Auto) 0.0 TH/MM3 0.0 TH/MM3 0.1 TH/MM3 Basophils # (Auto) 0.5 TH/MM3 0.0 TH/MM3 0.0 TH/MM3 CBC Comment DIFF FINAL DIFF FINAL DIFF FINAL Differential Comment Blood Urea Nitrogen 16 MG/DL 7 MG/DL 6 MG/DL Creatinine 1.10 MG/DL 0.56 MG/DL 0.56 MG/DL Random Glucose 129 MG/DL 119 MG/DL 111 MG/DL Total Protein 7.7 GM/DL Albumin 3.2 GM/DL Calcium Level 9.3 MG/DL 8.3 MG/DL 8.6 MG/DL Alkaline Phosphatase 93 U/L Aspartate Amino Transf (AST/SGOT) 10 U/L Alanine Aminotransferase (ALT/SGPT) 15 U/L Total Bilirubin 0.4 MG/DL Sodium Level 135 MEQ/L 137 MEQ/L 138 MEQ/L Potassium Level 3.5 MEQ/L 3.4 MEQ/L 3.1 MEQ/L Chloride Level 96 MEQ/L 102 MEQ/L 103 MEQ/L Carbon Dioxide Level 30.4 MEQ/L 27.8 MEQ/L 26.2 MEQ/L Anion Gap 9 MEQ/L 7 MEQ/L 9 MEQ/L Estimat Glomerular Filtration Rate 50 ML/MIN 109 ML/MIN 109 ML/MIN Lipase 172 U/L Imaging Last Impressions Enema w/Water Soluble 08/20/17 0000 Signed Impressions: Service Date/Time: Sunday, August 20, 2017 11:36 - CONCLUSION: Initial obstruction at the distal sigmoid colon that eventually did allow Gastrografin to flow through this region. This is thought to likely be secondary to a large amount stool in this region. An underlying lesion cannot be excluded. It is thought that this region of the colon could be directly inspected at some point. Nestor Muñoz MD Abdomen/Pelvis CT 08/19/17 0000 Signed Impressions: Service Date/Time: Saturday, August 19, 2017 12:31 - CONCLUSION: 1. Retained stool in the sigmoid colon which has the appearance of a fecal impaction. 2. Fluid collection and mild wall thickening is identified in the distal descending colon and proximal sigmoid colon. 3. No evidence of free air, significant pericolonic inflammation or abnormal extraintestinal fluid collections. 4. Simple hepatic cysts. Naeem Dorado MD Last 24 hours Impressions Abdomen/Pelvis CT 08/19/17 0000 Signed Impressions: Service Date/Time: Saturday, August 19, 2017 12:31 - CONCLUSION: 1. Retained stool in the sigmoid colon which has the appearance of a fecal impaction. 2. Fluid collection and mild wall thickening is identified in the distal descending colon and proximal sigmoid colon. 3. No evidence of free air, significant pericolonic inflammation or abnormal extraintestinal fluid collections. 4. Simple hepatic cysts. Naeem Dorado MD Objective Remarks Exam: Pleasant white female in no distress. HEENT: Pupils equal, no scleral icterus, mouth negative Heart: RRR with no murmurs Lungs: Clear Abdomen: Soft, no significant tenderness of her abdomen. Extremities: No edema Neuro: alert, oriented A/P Assessment and Plan Assessment: --Abdominal pain--resolved --Mild abdominal wall thickening in the distal descending and sigmoid colon on CT scan--? diverticulitis --Fecal impaction on CT scan; resolved with gastrografin enema yesterday --Hypertension --Hypokalemia Plan: I will give her 30meq of KCL this morning. I discussed the case with Dr Maier yesterday afternoon and she cleared her for discharge home this morning. She will followup with Dr Maier in 2 weeks and will have an outpatient colonoscopy in the near future. Dr Maier recommended she go home on oral Cipro and Flagyl for 7 days. She will resume her home medication and followup with her PCP within one week. An order for her to go to the lab and do a potassium tomorrow. I will order KCL 20meq daily x 3 days. Duran Aguilar MD Aug 21, 2017 08:34
--- NOTE | 2017-08-21 08:36 | RADRPT ---
EXAM DATE/TIME: 08/21/2017 08:13 [facility] COMPARISON: GASTROGRAFIN ENEMA, August 20, 2017, 11:36. INDICATIONS : Follow up fecal impaction. MEDICAL HISTORY : Hypertension. Irritable bowel syndrome. Diverticulitis. SURGICAL HISTORY : section. Hysterectomy ENCOUNTER: Subsequent ACUITY: 3 days PAIN SCORE: 0/10 LOCATION: abdomen FINDINGS: Supine and upright views of the abdomen were performed. Residual contrast in the large bowel. Diverti culosis of the colon. No fecal impaction seen. No abnormal masses, calcifications, or organomegaly i s seen. The visualized lower lungs are clear. No evidence of free intraperitoneal gas. The osseous structures are unremarkable. CONCLUSION: No fecal impaction seen. Diverticulosis of the colon. Rk Pina MD on August 21, 2017 at 8:28 Board Certified Radiologist. This report was verified electronically.
[2017-08-21] MEDS ORDERED: CIPR500T2 PO (08:44)
[2017-08-21] MEDS ORDERED: METR1TAB76 PO (08:44)
[2017-08-21] MEDS ORDERED: POTA10TA2 PO (08:44)
[2017-08-21] MEDS: LISINOPRIL 20 MG TAB PO SCH (09:00)
[2017-08-21] MEDS: SODIUM CHLORIDE 0.9% FLUSH 10 ML FLUSH IV FLUSH SCH (09:00)
[2017-08-21] MEDS ORDERED: POTASSIUM CHLORIDE 10 MEQ CONTROLLED RELEASE TAB PO ONE (09:00)
[2017-08-21] MEDS: DOCUSATE SODIUM 50 MG/SENNA 8.6 MG TAB PO SCH (09:34)
== END 2017-08-21 09:59 | disposition home or self-care (01) ==
LOC: PHED 10:42 → PHEDA 13:40 → PH3A 15:14
PROVIDERS: ADMIT Family Medicine; ATTEND Family Medicine
DX: R10.9 Unspecified abdominal pain (principal); K56.41 Fecal impaction; R55 Syncope and collapse; E87.6 Hypokalemia; K57.92 Diverticulitis of intestine, part unspecified, without perforation or abscess without bleeding; K57.30 Diverticulosis of large intestine without perforation or abscess without bleeding; I10 Essential (primary) hypertension; K76.89 Other specified diseases of liver; K58.9 Irritable bowel syndrome, unspecified; Z79.899 Other long term (current) drug therapy
CPT/HCPCS: 74019; 74177; 74270; 80048; 80053; 81001; 83690; 85025; 96361; 96365; 96366; 96368; 99285; G0378; J0744; Q9963; Q9967; J2405